=== PATIENT | female | born 1990 | race Caucasian/White ===

== ENCOUNTER → 2017-12-15 | Outpatient (CLI) | payer MEDICAID ==
--- NOTE | 2017-12-15 15:23 | RADIOLOGY REPORT (SQ) ---
EXAM DESCRIPTION: KUB/ABDOMEN (SINGLE VIEW) COMPLETED DATE/TIME: 12/15/2017 2:27 pm REASON FOR STUDY: UNSPECIFIED ABDOMINAL PAIN R10.9 UNSPECIFIED ABDOMINAL PAIN . Epigastric pain. COMPARISON: None. NUMBER OF VIEWS: One view. TECHNIQUE: Supine radiographic image of the abdomen acquired. LIMITATIONS: None. FINDINGS: BOWEL GAS PATTERN: Normal bowel gas pattern. No dilated loops. Mild constipation. CALCIFICATIONS: No suspicious calcifications. SOFT TISSUES: No gross mass or suggestion of organomegaly. HARDWARE: None in the abdomen. BONES: No acute fracture. No worrisome bone lesions. OTHER: Surgical clips left hemipelvis. IMPRESSION: NONSPECIFIC BOWEL-GAS PATTERN. TECHNICAL DOCUMENTATION: JOB ID: [id number] [employer]- All Rights Reserved Reading location - IP/workstation name: [email or web address]
== END ==
LOC: RAD 14:14
PROVIDERS: ATTEND Nurse Practitioner Family
DX: R10.9 Unspecified abdominal pain (principal)
CPT/HCPCS: 74018

== ENCOUNTER 2018-01-09 07:42 | Emergency (ER) | payer MEDICAID ==
[2018-01-09] MEDS ORDERED: LIDOCAINE 1% INJ-PF (10 MG/ML) 30 ML SDV INJ ONE (08:16)
--- NOTE | 2018-01-09 08:22 | ER Document Report ---
HPI - HPI Pain Level: 5 Notes: Patient is a 27-year-old female with a history of ingrown toenails who presents to the ED complaining of right lateral toenail infection and discharge of the first digit. Patient states that she has had a history of ingrown toenails in the past. Patient states that she is picking at the skin in that area and the area has become painful and inflamed. She has not noticed any red streaks. No other concerns or complaints. Pain does not radiate. Denies any headache, fever, chest pain, palpitations, syncope, cough, shortness of breath, wheeze, dyspnea, abdominal pain, nausea/vomiting/diarrhea, urinary retention, dysuria, hematuria, numbness/tingling, muscle paralysis/weakness. - ROS Systems Reviewed and Negative: Yes All other systems reviewed and negative - MUSCULOSKELETAL Musculoskeletal: REPORTS: Extremity pain - R great toe Past Medical History - Social History Smoking Status: Never Smoker Chew tobacco use (# tins/day): No Frequency of alcohol use: None Drug Abuse: None Family History: Reviewed & Not Pertinent Patient has suicidal ideation: No Patient has homicidal ideation: No Renal/ Medical History: Denies: Hx Peritoneal Dialysis Vertical Provider Document - CONSTITUTIONAL Agree With Documented VS: Yes Notes: PHYSICAL EXAMINATION: GENERAL: Well-appearing, well-nourished and in no acute distress. LUNGS: Breath sounds clear to auscultation bilaterally and equal. No wheezes rales or rhonchi. HEART: Regular rate and rhythm without murmurs, rubs, gallops. Musculoskeletal: Rt ankle: FROM to passive/active. Strength 5+/5. N/V intact distal. + tenderness to the lateral nail/skin of the 1st digit. + mild swelling, erythema. No obvious paronychia. No felon. No bony tenderness of the foot. Achilles intact. Extremities: No cyanosis, clubbing, or edema b/l. Peripheral pulses 2+. Capillary refill less than 3 seconds. NEUROLOGICAL: Normal speech, normal gait. Normal sensory, motor exams PSYCH: Normal mood, normal affect. SKIN: see above. Warm, Dry, normal turgor, no rashes or lesions noted. - INFECTION CONTROL TRAVEL OUTSIDE OF THE [place] IN LAST 30 DAYS: No Course - Re-evaluation Re-evalutation: 01/09/18 09:00 Patient is an afebrile, well-hydrated, 19yo female presents to the ED with an ingrown toenail to the right first digit laterally. Vitals are acceptable. PE is otherwise unremarkable for any neurovascular compromise, obvious tendon/ ligament rupture, obvious fracture/dislocation, septic joint, felon. Patient is nontoxic-appearing and is tolerating p.o. without difficulties. Partial nail excision was performed successfully without any complications. Patient tolerated procedure well. Wound dressing was placed and wound instructions reviewed. No labs or imaging warranted at this time based on H&P. I will send her home with a prescription for Keflex. Conservative measures for symptoms. Recheck with your PCM in 3-5 days. Consider consult with podiatry. Return to the ED with any worsening/concerning symptoms otherwise as reviewed in discharge. Patient is in agreement. - Vital Signs Vital signs: Temp Pulse Resp BP Pulse Ox 98.5 F 69 14 141/83 H 100 01/09/18 07:46 01/09/18 07:46 01/09/18 07:46 01/09/18 07:46 01/09/18 07:46 Procedures - Additional Procedures Partial nail excision Time performed: 08:50 Additional Procedures: Other - Partial lateral nail excision performed on the first right digit of the foot successfully without any complications. Patient tolerated procedure well. Discharge - Discharge Clinical Impression: Ingrown toenail Condition: Stable Disposition: HOME, SELF-CARE Instructions: Cephalexin ([facility]), Ingrown Nail ([facility]) Additional Instructions: Keep the skin clean Wash with soap and water Tylenol/ibuprofen if needed Triple antibiotic ointment daily Take medication as directed Monitor for any worsening symptoms Recheck with your PCM in 3-5 days Consider consult with podiatry for ongoing/worsening symptoms Return to the ED with any worsening symptoms and/or development of fever, headache, chest pain, palpitations, syncope, shortness of breath, trouble breathing, abdominal pain, n/v/d, abscess, purulent discharge, red streaks, worsening swelling, or other worsening symptoms that are concerning to you. Prescriptions: Cephalexin Monohydrate [Keflex 500 mg Capsule] 500 mg PO TID #30 capsule Forms: Elevated Blood Pressure Referrals: SAGAR OROZCO NP [Primary Care Provider] - Follow up as needed MARIANN EMANUEL DPM [ACTIVE STAFF] - Follow up as needed
[2018-01-09 09:09] VITALS: BP 138/82
== END 2018-01-09 09:14 | disposition home or self-care (01) ==
LOC: ER 07:42
PROC: 0HBRXZZ Excision of Toe Nail, External Approach (ICD-10-PCS; principal; 2018-01-09)
DX: L60.0 Ingrowing nail (principal)
CPT/HCPCS: 99283; 11750; J3490

== ENCOUNTER 2018-03-26 17:59 | Emergency (ER) | payer MEDICAID ==
--- NOTE | 2018-03-26 18:39 | ER Document Report ---
ED General - General Chief Complaint: Breathing Difficulty Stated Complaint: DIFFICULTY BREATHING Time Seen by Provider: 03/26/18 18:29 Notes: Patient is a 27-year-old female that presents to the emergency department for chief complaint of shortness of breath and chest pain, and tingling in her fingers. Patient states that she was breathing heavily, and started feeling tingling in her fingers, and had some chest tightness associated with this. She has had these symptoms in the past, it has been a few months but she gets them almost every 3 months. She describes the pain/tightness in her chest as a sharp pain, that comes and goes, she is not currently having any pain. She states is mainly on the left side, occasionally will radiate towards the neck. She does identify she is been rather stressed recently, she does have a special needs child, which does take up a lot of her time, and does give her anxiety. This is very similar to prior episode she has had in the past, where she is that she has had a negative workup. She denies a family history of early coronary disease, denies recent travel, or leg swelling or redness. She is not currently on oral contraceptive pills. Denies smoking history, hypertension, or hyperlipidemia. Past Medical History: Denies chronic medical conditions Past Surgical History: , kidney surgery Social History: Denies tobacco, alcohol or illicit drug use. Family History: Reviewed and noncontributory for presenting illness Allergies: Reviewed, see documented allergy list. REVIEW OF SYSTEMS: Other than noted above, the 12 point review of systems was reviewed with the patient and were negative, all pertinent findings are included in the HPI. PHYSICAL EXAMINATION: Vital signs reviewed, nursing noted reviewed. GENERAL: Well-appearing, well-nourished and in no acute distress. HEAD: Atraumatic, normocephalic. EYES: Eyes appear normal, extraocular movements intact, sclera anicteric, conjunctiva are normal. ENT: nares patent, oropharynx clear without exudates. Moist mucous membranes. NECK: Normal range of motion, supple without lymphadenopathy LUNGS: Breath sounds clear to auscultation bilaterally and equal. No wheezes rales or rhonchi. HEART: Regular rate and rhythm without murmurs ABDOMEN: Soft, nontender, normoactive bowel sounds. No rebound, guarding, or rigidity. No masses appreciated. EXTREMITIES: Nontender, good range of motion, no pitting or edema. NEUROLOGICAL: No focal neurological deficits. Moves all extremities spontaneously Motor and sensory grossly intact on exam. Sensation intact distally in all digits, and equal bilaterally in the hands and fingers, patient has sensation of pins and needles in the fingertips with palpation. PSYCH: Appears mildly anxious SKIN: Warm, Dry, normal turgor, no rashes or lesions noted on exposed skin TRAVEL OUTSIDE OF THE [place] IN LAST 30 DAYS: No - Related Data Allergies/Adverse Reactions: naproxen [From Naprosyn] Allergy (Verified 03/26/18 18:23) Past Medical History - Social History Smoking Status: Former Smoker Chew tobacco use (# tins/day): No Drug Abuse: None Family History: Reviewed & Not Pertinent Patient has suicidal ideation: No Patient has homicidal ideation: No Renal/ Medical History: Denies: Hx Peritoneal Dialysis Physical Exam - Vital signs Vitals: Temp Pulse Resp BP Pulse Ox 98.3 F 86 16 146/90 H 100 03/26/18 18:17 03/26/18 18:17 03/26/18 18:17 03/26/18 18:17 03/26/18 18:17 Course - Re-evaluation Re-evalutation: Patient seen and examined vital signs reviewed. Laboratory data and imaging were ordered as appropriate for the patient's presenting symptoms and complaint, with consideration of any critical or life threatening conditions that may be associated with their obtained history and exam as noted above. Patient is currently symptom-free, denies chest pain or shortness of breath, she just had mild paresthesias in her fingertips, which was most likely from hyperventilating earlier prior to ED arrival Results were reviewed when available and demonstrated EKG, without ST changes, and ultimately normal, chest x-ray was negative, urine negative, as well as negative UA, patient falls into a very low risk category for coronary artery disease, given she is under 30 years old, without history of early coronary disease in the family, and no smoking history, or comorbidities. She also is low risk for PE, given no recent travel G heart rate less than 90, PERC negative based on criteria. The patient was re-evaluated and was stable Evaluation was most consistent with nonspecific chest pain, likely stress related, will prescribe Atarax at bedtime to help with the patient's symptoms. She is advised to follow-up with her primary care physician, and she is also given a tag marker for referral for pain returns Results were discussed with the patient at this point, after careful consideration I feel that that patient can be discharged from the emergency department, the patient was educated treatments and reasons to return to the emergency department based on their presumed diagnosis as noted above, they were advised to followup with a primary care physician in 2-3 days. Patient was agreeable to plan of care. *Note is created using voice recognition software and may contain spelling, syntax or grammatical errors. Laboratory 03/26/18 19:25 Urine Color YELLOW Urine Appearance SLIGHTLY-CLOUDY Urine pH 7.0 Ur Specific Isabel 1.017 Urine Protein NEGATIVE Urine Glucose (UA) NEGATIVE Urine Ketones NEGATIVE Urine Blood NEGATIVE Urine Nitrite NEGATIVE Urine Bilirubin NEGATIVE Urine Urobilinogen NEGATIVE Ur Leukocyte Esterase TRACE H Urine WBC (Auto) 4 Urine RBC (Auto) 1 Squamous Epi Cells Auto 5 Urine Mucus (Auto) RARE Urine Ascorbic Acid NEGATIVE Urine HCG, Qual NEGATIVE Chest X-Ray 03/26/18 18:38 IMPRESSION: NO ACUTE RADIOGRAPHIC FINDING IN THE CHEST. - Vital Signs Vital signs: Temp Pulse Resp BP Pulse Ox 98.3 F 86 16 146/90 H 100 03/26/18 18:17 03/26/18 18:17 03/26/18 18:17 03/26/18 18:17 03/26/18 18:17 - Laboratory Laboratory results interpreted by me: 03/26/18 19:25 Ur Leukocyte Esterase TRACE H - EKG Interpretation by Me Additional EKG results interpreted by me: EKG demonstrates sinus rhythm with a ventricular rate of 86 bpm, normal axis, normal intervals, there is no evidence of acute ischemia in this EKG, no ST changes. No prior EKG for comparison. Discharge - Discharge Clinical Impression: Paresthesia Chest pain Qualifiers: Chest pain type: unspecified Qualified Code(s): R07.9 - Chest pain, unspecified Disposition: HOME, SELF-CARE Instructions: Chest Pain of Unclear Cause ([facility]), Anxiety ([facility]) Additional Instructions: If you have any worsening or returning symptoms, do not hesitate to return to the emergency department, you can follow-up with her primary care physician, to repeat your blood pressure in the outpatient setting, and please follow-up if needed with cardiology, if you are Further concerned about the chest tightness you had. Please take the medication provided as needed, as it may help with some of your symptoms. Prescriptions: Hydroxyzine HCl [Atarax 50 mg Tablet] 50 mg PO Q8H PRN #20 tablet PRN Reason: stress/anxiety symptoms Forms: Elevated Blood Pressure Referrals: SAGAR OROZCO NP [Primary Care Provider] - Follow up in 3-5 days NORY RIVAS MD [ACTIVE STAFF] - Follow up in 3-5 days (cardiology )
--- NOTE | 2018-03-26 19:25 | RADIOLOGY REPORT (SQ) ---
EXAM DESCRIPTION: CHEST 2 VIEWS COMPLETED DATE/TIME: 03/26/2018 7:16 pm REASON FOR STUDY: chest pain COMPARISON: None. EXAM PARAMETERS: NUMBER OF VIEWS: two views TECHNIQUE: Digital Frontal and Lateral radiographic views of the chest acquired. RADIATION DOSE: NA LIMITATIONS: none FINDINGS: LUNGS AND PLEURA: No opacities, masses or pneumothorax. No pleural effusion. MEDIASTINUM AND HILAR STRUCTURES: No masses or contour abnormalities. HEART AND VASCULAR STRUCTURES: Heart normal size. No evidence for failure. BONES: No acute findings. HARDWARE: None in the chest. OTHER: No other significant finding. IMPRESSION: NO ACUTE RADIOGRAPHIC FINDING IN THE CHEST. TECHNICAL DOCUMENTATION: JOB ID: [id number] [employer]- All Rights Reserved Reading location - IP/workstation name: [email or web address]
[2018-03-26 19:38] LABS: APPEARANCE,URINE SLIGHTLY-CLOUDY; BILIRUBIN,URINE NEGATIVE (NEGATIVE); COLOR,URINE YELLOW; GLUCOSE, URINE NEGATIVE (NEGATIVE); KETONES,URINE NEGATIVE (NEGATIVE); LEUKOCYTE ESTERASE,URINE TRACE (NEGATIVE); NITRITE,URINE NEGATIVE (NEGATIVE); PROTEIN,URINE NEGATIVE (NEGATIVE); URINE SPECIFIC GRAVITY 1.017; UROBILINOGEN,URINE NEGATIVE mg/dL (<2.0)
[2018-03-26 20:25] VITALS: BP 132/86
--- NOTE | 2018-03-27 07:10 | EKG REPORT ---
SEVERITY:- NORMAL ECG - SINUS RHYTHM : Confirmed by: Sj Guzman 27-Mar-2018 07:09:54
== END 2018-03-26 20:25 | disposition home or self-care (01) ==
LOC: ER 17:59
DX: R20.2 Paresthesia of skin (principal); R07.89 Other chest pain; R06.02 Shortness of breath; Z87.891 Personal history of nicotine dependence
CPT/HCPCS: 71046; 81001; 81025; 93005; 93010; 99285

== ENCOUNTER 2018-05-09 09:55 | Emergency (ER) | payer MEDICAID ==
[2018-05-09] MEDS ORDERED: ACETAMINOPHEN 325 MG TABLET PO ONE ×2 (10:37→16:00)
[2018-05-09] MEDS ORDERED: ONDANSETRON HCL INJ/PF 4 MG/2 ML SDV IV ONE (11:02)
[2018-05-09] MEDS ORDERED: IPRATROPIUM/ALBUTEROL 0.5-2.5 MG/3 ML AMPUL NEB ONE (11:02)
--- NOTE | 2018-05-09 11:25 | RADIOLOGY REPORT (SQ) ---
EXAM DESCRIPTION: CHEST 2 VIEWS COMPLETED DATE/TIME: 05/09/2018 11:12 am REASON FOR STUDY: sob COMPARISON: 03/26/2018 EXAM PARAMETERS: NUMBER OF VIEWS: two views TECHNIQUE: Digital Frontal and Lateral radiographic views of the chest acquired. RADIATION DOSE: NA LIMITATIONS: none FINDINGS: LUNGS AND PLEURA: No opacities, masses or pneumothorax. No pleural effusion. MEDIASTINUM AND HILAR STRUCTURES: No masses or contour abnormalities. HEART AND VASCULAR STRUCTURES: Heart normal size. No evidence for failure. BONES: No acute findings. HARDWARE: None in the chest. OTHER: No other significant finding. IMPRESSION: NO ACUTE RADIOGRAPHIC FINDING IN THE CHEST. TECHNICAL DOCUMENTATION: JOB ID: [id number] [employer]- All Rights Reserved Reading location - IP/workstation name: [email or web address]
[2018-05-09 11:45] LABS: A TYPE INFLUENZA AG POSITIVE (NEGATIVE); B INFLUENZA AG NEGATIVE (NEGATIVE)
[2018-05-09] MEDS: NORMAL SALINE 1000 ML 1,000 ML IV PRN ×2 (11:47→14:47)
[2018-05-09 12:06] LABS: ABSOLUTE LYMPHOCYTES (AUTO) 0.5 10^3/uL (0.5-4.7); ABSOLUTE MONOCYTES (AUTO) 0.5 10^3/uL (0.1-1.4); ABSOLUTE NEUT (AUTO) 4.1 10^3/uL (1.7-8.2); BASOPHILS % (AUTO) 0.5 % (0-2); EOSINOPHILS % (AUTO) 0.3 % (0-6); HEMATOCRIT 38.5 % (36.0-47.0); HEMOGLOBIN 13.2 g/dL (12.0-15.5); LYMPHOCYTES % (AUTO) 9.5 % (13-45); MEAN CORPUSCULAR HEMOGLOBIN 29.7 pg (27.0-33.4); MEAN CORPUSCULAR HGB CONC 34.3 g/dL (32.0-36.0); MEAN CORPUSCULAR VOLUME 87 fl (80-97); MONOCYTES % (AUTO) 10.6 % (3-13); PLATELET COUNT 216 10^3/uL (150-450); RED BLOOD COUNT 4.43 10^6/uL (3.72-5.28); RED CELL DISTRIBUTION WIDTH 12.8 % (11.5-14.0); SEGMENTED NEUTROPHILS % (AUTO) 79.1 % (42-78); TOTAL CELLS COUNTED % (AUTO) 100 %; WHITE BLOOD COUNT 5.2 10^3/uL (4.0-10.5)
[2018-05-09 12:31] LABS: ANION GAP 9 (5-19); BLOOD UREA NITROGEN 8 mg/dL (7-20); CARBON DIOXIDE 28 mmol/L (22-30); CHLORIDE 103 mmol/L (98-107); GLUCOSE 96 mg/dL (75-110); POTASSIUM 3.8 mmol/L (3.6-5.0); SODIUM 140.2 mmol/L (137-145)
[2018-05-09 12:33] LABS: APPEARANCE,URINE SLIGHTLY-CLOUDY; BILIRUBIN,URINE NEGATIVE (NEGATIVE); COLOR,URINE YELLOW; GLUCOSE, URINE NEGATIVE (NEGATIVE); KETONES,URINE TRACE mg/dL (NEGATIVE); LEUKOCYTE ESTERASE,URINE TRACE (NEGATIVE); NITRITE,URINE POSITIVE (NEGATIVE); PROTEIN,URINE NEGATIVE (NEGATIVE); UROBILINOGEN,URINE NEGATIVE mg/dL (<2.0)
[2018-05-09] MEDS ORDERED: NITROFURANTOIN MONOHYD/M-CRYST 100 MG CAPSULE PO ONE (13:47)
[2018-05-09] MEDS ORDERED: ALBUTEROL SULFATE HFA (90 MCG/PUFF) 8 GM MDI (1 MDI/ER DISP) IH ONE (14:02)
--- NOTE | 2018-05-09 14:05 | ER Document Report ---
ED General - General Chief Complaint: Cold Symptoms Stated Complaint: FLU SYMPTOMS Time Seen by Provider: 05/09/18 10:39 TRAVEL OUTSIDE OF THE [place] IN LAST 30 DAYS: No - HPI Patient complains to provider of: Fevers myalgias short of breath headache Notes: Patient coming in for the above-stated symptoms. Patient states ongoing since Sunday. Patient is unaware of her flu vaccine status denies any past medical history. Denies any recent travel denies any sick contacts patient patient denies any recent antibiotics. Patient otherwise is resting comfortably upon my evaluation denies any trauma patient states she is taking Tylenol for her pain and fever. Patient otherwise looks to be in no obvious distress upon my evaluation. - Related Data Allergies/Adverse Reactions: naproxen [From Naprosyn] Allergy (Verified 05/09/18 09:57) Past Medical History - Social History Smoking Status: Never Smoker Frequency of alcohol use: None Drug Abuse: None Family History: Reviewed & Not Pertinent Patient has suicidal ideation: No Patient has homicidal ideation: No Renal/ Medical History: Denies: Hx Peritoneal Dialysis Past Surgical History: Reports: Hx Section, Hx Kidney (Renal Surgery) Review of Systems - Review of Systems Constitutional: Fever, Malaise EENT: No symptoms reported Cardiovascular: No symptoms reported Respiratory: Short of breath Gastrointestinal: Nausea Genitourinary: No symptoms reported Female Genitourinary: No symptoms reported Musculoskeletal: No symptoms reported Skin: No symptoms reported Hematologic/Lymphatic: No symptoms reported Neurological/Psychological: No symptoms reported -: Yes All other systems reviewed and negative Physical Exam - Vital signs Vitals: Temp Pulse BP Pulse Ox 102.9 F H 126 H 127/97 H 100 05/09/18 10:01 05/09/18 10:01 05/09/18 10:01 05/09/18 10:01 Interpretation: Tachycardic, Febrile - General General appearance: Appears well, Alert - HEENT Head: Normocephalic, Atraumatic Eyes: Normal Pupils: PERRL - Respiratory Respiratory status: No respiratory distress Chest status: Nontender Breath sounds: Normal Chest palpation: Normal - Cardiovascular Rhythm: Regular Heart sounds: Normal auscultation Murmur: No - Abdominal Inspection: Normal Distension: No distension Bowel sounds: Normal Tenderness: Nontender Organomegaly: No organomegaly - Back Back: Normal, Nontender - Extremities General upper extremity: Normal inspection, Nontender, Normal color, Normal ROM, Normal temperature General lower extremity: Normal inspection, Nontender, Normal color, Normal ROM, Normal temperature, Normal weight bearing. No: Zan's sign - Neurological Neuro grossly intact: Yes Cognition: Normal Orientation: AAOx4 [place] Coma Scale Eye Opening: Spontaneous [place] Coma Scale Verbal: Oriented [place] Coma Scale Motor: Obeys Commands [place] Coma Scale Total: 15 Speech: Normal Motor strength normal: LUE, RUE, LLE, RLE Sensory: Normal - Psychological Associated symptoms: Normal affect, Normal mood - Skin Skin Temperature: Warm Skin Moisture: Dry Skin Color: Normal Course - Re-evaluation Re-evalutation: 05/09/18 15:57 Patient's urinalysis shows nitrate positive was sent for culture will start patient on Macrobid. Patient did return positive for flu type a was able to tolerate p.o. Patient was given instructions on treatment of the flu. Drink plenty fluids to stay well-hydrated. Patient stated understanding will discharge home - Vital Signs Vital signs: Temp Pulse Resp BP Pulse Ox 100.2 F 117 H 17 128/75 H 96 05/09/18 12:47 05/09/18 12:47 05/09/18 12:47 05/09/18 12:47 05/09/18 12:47 - Laboratory Result Diagrams: 05/09/18 11:37 05/09/18 11:37 Laboratory results interpreted by me: 05/09/18 05/09/18 11:37 11:37 Seg Neutrophils % 79.1 H Lymphocytes % 9.5 L Urine Ketones TRACE H Urine Nitrite POSITIVE H Ur Leukocyte Esterase TRACE H Discharge - Discharge Clinical Impression: Influenza A, UTI (urinary tract infection) Instructions: Influenza ([facility]), Urinary Tract Infection ([facility]) Additional Instructions: Your evaluation today shows signs of a urinary tract infection we will start you on antibiotic Your flu test did return positive for flu type a I recommend drinking plenty of fluids to stay well-hydrated take the Zofran as provided for any nausea you can expect to have fevers chills sweats myalgias or muscle pain feeling unwell for up to the next 5-7 days return to ER if symptoms worsen or he cannot stay well-hydrated. Prescriptions: Nitrofurantoin/Nitrofuran Mac [Macrobid 100 mg Capsule] 1 tab PO BID #20 capsule Ondansetron [Zofran Odt 4 mg Tablet] 1 - 2 tab PO Q4H PRN #30 tab.rapdis PRN Reason: For Nausea/Vomiting Forms: Return to Work
[2018-05-09 15:59] VITALS: BP 137/86
== END 2018-05-09 16:58 | disposition home or self-care (01) ==
LOC: ER 09:55
DX: J10.1 Influenza due to other identified influenza virus with other respiratory manifestations (principal); N39.0 Urinary tract infection, site not specified; R50.9 Fever, unspecified; R51 Headache; R06.02 Shortness of breath; R53.81 Other malaise; R11.0 Nausea; Z88.8 Allergy status to other drugs, medicaments and biological substances
CPT/HCPCS: 94640; 99284; 96361; 96374; 36415; 87086; 84702; 85025; 87088; 80048; 81001; 87186; 87804; 71046; J3490 ×3; J2405; J7030; J7620; J8499

== ENCOUNTER 2018-05-12 13:22 | Emergency (ER) | payer MEDICAID ==
[2018-05-12] MEDS ORDERED: DEXAMETHASONE SOD PHOS INJ 10 MG/1 ML VIAL IM ONE (14:10)
[2018-05-12] MEDS ORDERED: IPRATROPIUM/ALBUTEROL 0.5-2.5 MG/3 ML AMPUL NEB ONE (14:10)
--- NOTE | 2018-05-12 14:14 | ER Document Report ---
HPI - HPI Time Seen by Provider: 05/12/18 13:45 Pain Level: 5 Notes: Patient is a 27-year-old female who presents to the emergency department with chief complaint of worsening cough after being diagnosed with the flu last . She reports that it is a dry nonproductive cough and she states that she is unable to lie down due to the cough. Patient denies any fevers. She reports that the coughing feels like there is bubbles coming up in her throat. - REPRODUCTIVE Reproductive: DENIES: : Past Medical History - General Information source: Patient - Social History Smoking Status: Never Smoker Frequency of alcohol use: None Drug Abuse: None Family History: Reviewed & Not Pertinent - Medical History Medical History: Negative Renal/ Medical History: Denies: Hx Peritoneal Dialysis Past Surgical History: Reports: Hx Section, Hx Kidney (Renal Surgery) - Immunizations Immunizations up to date: Yes Vertical Provider Document - CONSTITUTIONAL Notes: PHYSICAL EXAMINATION: GENERAL: Well-appearing, well-nourished and in no acute distress. HEAD: Atraumatic, normocephalic. EYES: Pupils equal round and reactive to light, extraocular movements intact, conjunctiva are normal. ENT: Nares patent, oropharynx clear without exudates. Moist mucous membranes. NECK: Normal range of motion, supple without lymphadenopathy LUNGS: Breath sounds clear to auscultation bilaterally and equal. No wheezes rales or rhonchi. Persistent bronchospasm. HEART: Regular rate and rhythm without murmurs ABDOMEN: Soft, nontender, nondistended abdomen. No guarding, no rebound. No masses appreciated. Female : No CVA tenderness Musculoskeletal: Normal range of motion, no pitting or edema. No cyanosis. NEUROLOGICAL: Cranial nerves grossly intact. Normal speech, normal gait. Normal sensory, motor exams PSYCH: Normal mood, normal affect. SKIN: Warm, Dry, normal turgor, no rashes or lesions noted. - INFECTION CONTROL TRAVEL OUTSIDE OF THE [place] IN LAST 30 DAYS: No Course - Re-evaluation Re-evalutation: Patient's vital signs are stable. Soft tissue neck and chest x-ray are both unremarkable. Patient reports that she feels much improved after administration of breathing treatments and steroids. - Vital Signs Vital signs: Temp Pulse Resp BP Pulse Ox 98.4 F 87 18 138/100 H 98 05/12/18 13:45 05/12/18 13:45 05/12/18 13:45 05/12/18 13:45 05/12/18 13:45 Discharge - Discharge Clinical Impression: Bronchospasm Condition: Stable Disposition: HOME, SELF-CARE Additional Instructions: Bronchospasm You have tightness in the bronchial tubes, called bronchospasm. This often occurs with bronchial infections. Allergies, inhaled chemicals, and polluted or cold air can also provoke bronchospasm. It's more likely in patients with asthma in the family. Emergency treatment of bronchospasm may include adrenaline shots or bronchodilator aerosol. You may feel lightheaded and have a rapid pulse for an hour or two. Rest and get plenty of fluids. At home, we'll treat you with a bronchodilator inhaler. Corticosteroids may be required for some patients. Until you recover, avoid chemical fumes, dusts, pollens, and exercising in very cold or dry air. If you smoke, stop now!! If you develop a fever, increased wheezing, chest pain, or severe shortness of breath, you should contact the doctor immediately. Your x-rays were normal. Please take all medications as prescribed, they will help with your cough. Follow-up with your primary care provider in the next 3-5 days for follow-up. Return to the emergency department if you develop worsening symptoms, develop a fever increased wheezing or chest pain or worsening of your shortness of breath. Prescriptions: Phenylephrine HCl/Cod/Prometh [Phenergan Vc-Codeine Syrup] 10 ml PO QHS #120 ml Benzonatate [Tessalon Perles 100 mg Capsule] 100 mg PO Q8HP PRN #40 capsule PRN Reason: Prednisone [Deltasone 20 mg Tablet] 3 tab PO DAILY 4 Days #12 tablet Forms: Return to Work
--- NOTE | 2018-05-12 14:44 | RADIOLOGY REPORT (SQ) ---
EXAM DESCRIPTION: CHEST 2 VIEWS; SOFT TISSUE NECK COMPLETED DATE/TIME: 05/12/2018 2:32 pm REASON FOR STUDY: persistant cough; persistent cough COMPARISON: See below. FINDINGS: Two view soft tissue neck: Mild straightening. Soft tissues normal. No radiopaque forei gn body. No airway narrowing. Bones intact. Two-view chest: 05/09/2018 comparison. Normal study. TECHNICAL DOCUMENTATION: JOB ID: [id number] Reading location - IP/workstation name: [email or web address]
--- NOTE | 2018-05-12 14:44 | RADIOLOGY REPORT (SQ) ---
EXAM DESCRIPTION: CHEST 2 VIEWS; SOFT TISSUE NECK COMPLETED DATE/TIME: 05/12/2018 2:32 pm REASON FOR STUDY: persistant cough; persistent cough COMPARISON: See below. FINDINGS: Two view soft tissue neck: Mild straightening. Soft tissues normal. No radiopaque forei gn body. No airway narrowing. Bones intact. Two-view chest: 05/09/2018 comparison. Normal study. TECHNICAL DOCUMENTATION: JOB ID: [id number] Reading location - IP/workstation name: [email or web address]
[2018-05-12 16:16] VITALS: BP 148/77
[2018-05-12] MEDS ORDERED: BENZONATATE 100 MG CAPSULE PO ONE (16:42)
[2018-05-12] MEDS ORDERED: ALBUTEROL SULFATE HFA (90 MCG/PUFF) 8 GM MDI (1 MDI/ER DISP) IH ONE (16:42)
== END 2018-05-12 17:07 | disposition home or self-care (01) ==
LOC: ER 13:22
DX: J98.01 Acute bronchospasm (principal); R05 Cough
CPT/HCPCS: 94640; 99283; 96372; 71046; 70360; J3490 ×2; J1100; J7620

== ENCOUNTER 2018-06-10 14:42 | Emergency (ER) | payer MEDICAID ==
[2018-06-10 15:28] LABS: APPEARANCE,URINE SLIGHTLY-CLOUDY; BILIRUBIN,URINE NEGATIVE (NEGATIVE); COLOR,URINE YELLOW; GLUCOSE, URINE NEGATIVE (NEGATIVE); KETONES,URINE NEGATIVE (NEGATIVE); LEUKOCYTE ESTERASE,URINE TRACE (NEGATIVE); NITRITE,URINE NEGATIVE (NEGATIVE); PROTEIN,URINE NEGATIVE (NEGATIVE); URINE SPECIFIC GRAVITY 1.021; UROBILINOGEN,URINE NEGATIVE mg/dL (<2.0)
--- NOTE | 2018-06-10 17:04 | ER Document Report ---
ED Medical Screen (RME) - General Chief Complaint: Urinary Problem Stated Complaint: PAINFUL URINATION Time Seen by Provider: 06/10/18 17:02 Mode of Arrival: Ambulatory Information source: Patient Notes: 27-year-old female presents to ED for complaint of pain in the abdomen with vaginal discharge thick white nausea headache. 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 She states she went many months with no cycle and on 31 May she had a cycle and then developed the vaginal discharge pain with urination and pelvic pain. 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 She does have tenderness to the abdomen. Self swab specimens were sent for GC chlamydia and wet mount. She will be sent for an ultrasound for her pelvic pain. I have greeted and performed a rapid initial assessment of this patient. A comprehensive ED assessment and evaluation of the patient, analysis of test results and completion of medical decision making process will be conducted by an additional ED providers. TRAVEL OUTSIDE OF THE [place] IN LAST 30 DAYS: No - Related Data Allergies/Adverse Reactions: naproxen [From Naprosyn] Allergy (Verified 05/12/18 13:22) Past Medical History - Social History Chew tobacco use (# tins/day): No Frequency of alcohol use: None Drug Abuse: None Renal/ Medical History: Denies: Hx Peritoneal Dialysis Past Surgical History: Reports: Hx Section, Hx Kidney (Renal Surgery) - Immunizations Immunizations up to date: Yes Physical Exam - Vital signs Vitals: Temp Pulse Resp BP Pulse Ox 98.7 F 104 H 18 135/83 H 99 06/10/18 14:54 06/10/18 14:54 06/10/18 14:54 06/10/18 14:54 06/10/18 14:54 Course - Vital Signs Vital signs: Temp Pulse Resp BP Pulse Ox 98.7 F 104 H 18 135/83 H 99 06/10/18 14:54 06/10/18 14:54 06/10/18 14:54 06/10/18 14:54 06/10/18 14:54 - Laboratory Laboratory results interpreted by me: 06/10/18 14:45 Ur Leukocyte Esterase TRACE H
[2018-06-10] MEDS ORDERED: ACETAMINOPHEN 325 MG TABLET PO ONE (17:08)
[2018-06-10] MEDS ORDERED: ONDANSETRON 4 MG TAB.RAPDIS PO ONE (17:08)
[2018-06-10 17:35] LABS: BACTERIA (WET MOUNT) 4+ BACTERIA SEEN; EPITHELIALS (WET MOUNT) 3+ EPITHELIALS SEEN; T.VAGINALIS (WET MOUNT) NO TRICHOMONAS SEEN; WBCS (WET MOUNT) 1+ WBCS SEEN; YEAST (WET MOUNT) YEAST SEEN
--- NOTE | 2018-06-10 18:53 | RADIOLOGY REPORT (SQ) ---
EXAM DESCRIPTION: U/S NON-OB PELVIS TV W/O DOP COMPLETED DATE/TIME: 06/10/2018 6:43 pm REASON FOR STUDY: pelvic pain cramping discharge COMPARISON: None. TECHNIQUE: Dynamic and static grayscale images acquired of the pelvis via transvaginal approach and recorded on PACS. Additional selected color Doppler and spectral images recorded. LIMITATIONS: None. FINDINGS: UTERUS: Contour normal. No mass. ENDOMETRIAL STRIPE: No focal or generalized thickening. No masses. CERVIX: No nabothian cysts. RIGHT OVARY AND DOPPLER: Normal size. No worrisome masses. Normal arterial vascular flow without evid ence for torsion. LEFT OVARY AND DOPPLER: Normal size. 1.8 cm simple cyst. No worrisome masses. Normal arterial vascu lar flow without evidence for torsion. FREE FLUID: None noted. OTHER: No other significant finding. MEASUREMENTS: UTERUS: 4.0 x 5.3 x 7.8 cm. ENDOMETRIAL STRIPE: 11.8 mm. RIGHT OVARY: 2.2 x 2.9 x 3.8 cm. LEFT OVARY: 2.4 x 3.3 x 3.6 cm. IMPRESSION: 1.8 CM SIMPLE CYST IN THE LEFT OVARY. OTHERWISE UNREMARKABLE TRANSVAGINAL PELVIC ULTRAS OUND. TECHNICAL DOCUMENTATION: JOB ID: [id number] [employer]- All Rights Reserved Rev-09/28 Reading location - IP/workstation name: [email or web address]
[2018-06-10 19:00] LABS: CHLAM PCR NOT DETECTED (NOT DETECT); GON PCR NOT DETECTED (NOT DETECT)
[2018-06-10] MEDS ORDERED: CEPHALEXIN 500 MG CAPSULE PO ONE (20:48)
[2018-06-10] MEDS ORDERED: METRONIDAZOLE 500 MG TABLET PO ONE (20:48)
[2018-06-10] MEDS ORDERED: FLUCONAZOLE 100 MG TABLET PO ONE (20:48)
--- NOTE | 2018-06-10 20:53 | ER Document Report ---
ED General - General Chief Complaint: Urinary Problem Stated Complaint: PAINFUL URINATION Time Seen by Provider: 06/10/18 17:02 Mode of Arrival: Ambulatory Notes: Patient is a 27-year-old female that comes to the emergency department with multiple complaints. Chief complaint is vaginal discharge that smells with intermittent lower abdominal pain and cramping. She states she is not sexually active. She does have a history of PCOS. Second complaint is that she has had a sore throat for almost 1 week that has not resolved. She denies congestion, cough. Unsure of fever. She states that she gets frequent headaches and they have been slightly worse this week, she also has tightness in her neck slightly worse on the right. She denies injury. She is on no daily medications. Past medical history of congenital third kidney removed and a . TRAVEL OUTSIDE OF THE [place] IN LAST 30 DAYS: No - Related Data Allergies/Adverse Reactions: naproxen [From Naprosyn] Allergy (Verified 05/12/18 13:22) Past Medical History - General Information source: Patient - Social History Smoking Status: Never Smoker Chew tobacco use (# tins/day): No Frequency of alcohol use: None Drug Abuse: None Lives with: Family Family History: Reviewed & Not Pertinent Patient has suicidal ideation: No Patient has homicidal ideation: No Renal/ Medical History: Reports: Hx Ovarian Cysts. Denies: Hx Peritoneal Dialysis Past Surgical History: Reports: Hx Section, Hx Kidney (Renal Surgery) - Immunizations Immunizations up to date: Yes Review of Systems - Review of Systems Constitutional: No symptoms reported EENT: See HPI Cardiovascular: No symptoms reported Respiratory: No symptoms reported Gastrointestinal: See HPI Genitourinary: See HPI Female Genitourinary: See HPI Musculoskeletal: No symptoms reported Skin: No symptoms reported Hematologic/Lymphatic: No symptoms reported Neurological/Psychological: No symptoms reported Physical Exam - Vital signs Vitals: Temp Pulse Resp BP Pulse Ox 98.7 F 104 H 18 135/83 H 99 06/10/18 14:54 06/10/18 14:54 06/10/18 14:54 06/10/18 14:54 06/10/18 14:54 - Notes Notes: GENERAL: Alert, interacts well. No acute distress. HEAD: Normocephalic, atraumatic. EYES: Pupils equal, round, and reactive to light. Extraocular movements intact. ENT: Oral mucosa moist, tongue midline. Erythema with mild tonsillitis of the posterior pharynx, no exudates, normal uvula, no signs of peritonsillar abscess. Airway patent. Nares patent, no nasal septal hematoma, TM's intact. NECK: Full range of motion. Supple. Trachea midline. Mild anterior cervical adenopathy bilaterally. LUNGS: Clear to auscultation bilaterally, no wheezes, rales, or rhonchi. No respiratory distress. HEART: Regular rate and rhythm. No murmur ABDOMEN: Soft, non-tender. Non-distended. Bowel sounds present in all 4 quadrants. GENITOURINARY: Deferred EXTREMITIES: Moves all 4 extremities spontaneously. No edema, normal radial and dorsalis pedis pulses bilaterally. No cyanosis. BACK: no cervical, thoracic, lumbar midline tenderness. No saddle anesthesia, normal distal neurovascular exam. NEUROLOGICAL: Alert and oriented x3. Normal speech. [cranial nerves II through XII grossly intact]. PSYCH: Normal affect, normal mood. SKIN: Warm, dry, normal turgor. No rashes or lesions noted. Course - Re-evaluation Re-evalutation: I reviewed patient's data. Urinalysis is actually unremarkable, test is negative, wet mount showing yeast, elevated bacteria, some white blood cells. Gonorrhea and chlamydia are negative, trichomonas negative as expected with lack of sexual activity. Patient reporting whitish vaginal discharge. Abdomen soft and benign on my evaluation despite reported lower abdominal pain. Ultrasound showing left ovarian cyst which is small without torsion or other concerning finding. Patient is well-appearing, vital signs unremarkable. Patient does have erythema of the posterior pharynx with mild anterior cervical adenopathy bilaterally. No exudates or signs of peritonsillar abscess. Discussed strep swab and this was declined. After discussion decision was made to treat her with Diflucan now, Flagyl and Keflex at home for coverage of dysuria and sore throat, Diflucan to follow after completion. Discussed [employer] follow-up. Discussed return precautions. Patient states satisfaction and agreement with plan. - Vital Signs Vital signs: Temp Pulse Resp BP Pulse Ox 98.1 F 77 18 133/85 H 99 06/10/18 21:07 06/10/18 21:07 06/10/18 21:07 06/10/18 21:07 06/10/18 21:07 - Laboratory Laboratory results interpreted by me: 06/10/18 14:45 Ur Leukocyte Esterase TRACE H Discharge - Discharge Clinical Impression: Vaginal discharge, Dysuria, Frequent headaches Pharyngitis Qualifiers: Pharyngitis/tonsillitis etiology: unspecified etiology Qualified Code(s): J02.9 - Acute pharyngitis, unspecified Condition: Stable Disposition: HOME, SELF-CARE Additional Instructions: We are treating for bacterial vaginosis and a yeast infection. You also are being covered for urinary tract infection and possible strep throat infection. Take Flagyl and Keflex as prescribed, after completion take the Diflucan. You have a 1.8 cm cyst on the left ovary which should resolve, remaining ultrasound is unremarkable. Take the Robaxin as muscle aches for your neck for suspected tension headaches, massage the neck, apply heat to the area, etc. Follow-up with primary care for additional management of headaches. Return if you worsen including fever, vomiting, severe abdominal pain, severe headache, or any other concerning or worsening symptoms. Prescriptions: Cephalexin Monohydrate [Keflex 500 mg Capsule] 500 mg PO BID 10 Days #20 capsule Fluconazole [Diflucan] 150 mg PO ONCE PRN #1 tablet PRN Reason: Methocarbamol [Robaxin 750 mg Tablet] 750 mg PO Q6 PRN #20 tablet PRN Reason: Metronidazole [Flagyl 500 mg Tablet] 500 mg PO BID #14 tablet Forms: Return to Work
[2018-06-10 21:08] VITALS: BP 133/85
== END 2018-06-10 21:08 | disposition home or self-care (01) ==
LOC: ER 14:42
DX: J02.9 Acute pharyngitis, unspecified (principal); R51 Headache; R30.0 Dysuria; N89.8 Other specified noninflammatory disorders of vagina
CPT/HCPCS: 99284; 87086; 87210; 81025; 87088; 81001; 87491; 87591; 76830; J3490 ×3; S0119